=== PATIENT | male | born 1945 | race Caucasian/White ===

== ENCOUNTER → 2018-02-25 11:28 | Outpatient (CLI) | payer OTHER, SELFPAY ==
--- NOTE | 2018-02-25 | DI.MRI.S_ITS ---
PROCEDURE: MR LUMBAR SPINE WO CON INDICATIONS: LOW BACK PAIN TECHNIQUE: Noncontrast sagittal T1 spin echo and T2 fast echo, sagittal STIR, axial T1 and T2 fast spin echo through the lumbar spine. In cases with scoliosis, additional coronal T2 fast spin echo may be performed. COMPARISON: [facility], MR, L-SPINE WITHOUT CONTRAST, 03/06/2010, 10:02. FINDINGS: Image quality: Diagnostic, with note made of motion artifact. Alignment and Curvature: There is normal bony alignment. Bone Marrow: Marrow is of normal overall signal. No acute vertebral body compression fractures. Spinal Cord: Conus medullaris terminates at the L1 level. Visualized cord demonstrates normal signal and size. Paraspinous Soft Tissues: No paravertebral masses. T12-L1: Normal appearance. L1-L2: Bridging endplate osteophytes are seen anteriorly. No significant neural foraminal or central canal narrowing are seen. Stable from the prior study. L2-L3: The disc height is well-preserved. Loss of disc signal is seen at this level. Mild generalized disc bulge is seen. There is mild left-sided and no significant right-sided neural foraminal narrowing seen. No central canal narrowing is seen. When comparison is made with the prior examination, these findings are similar. L3-L4: Moderate loss of disc height is seen. Loss of disc signal is seen. A nonacute appearing Schmorl's node is seen at the superior endplate of L4. An annular fissure can be seen on the left posteriorly, as on series 5 image 21 and on series 2 image 13. Mild to moderate facet hypertrophy is seen. No neural foraminal narrowing is seen, left worse than right. Mild central canal narrowing is seen. There has been progression compared to 2009. L4-L5: The disc height is well-preserved. Loss of disc signal is seen at this level. Mild to moderate disc bulge is seen. Mild to moderate facet hypertrophy is seen. Minimal to mild bilateral neural foraminal narrowing is seen, right worse than left. No significant central canal narrowing is seen. The degree of neural foraminal narrowing appears slightly improved compared to 2009. L5-S1: Moderate loss of disc height is seen. Loss of disc signal is seen. Reactive marrow endplate changes are seen, which are hyperintense on T1-weighted and T2-weighted imaging and most consistent with fatty metaplasia (Modic type II changes). Mild to moderate disc bulge is seen. Along the posterior aspect of the annulus fibrosis, there is an annular fissure seen, as on series 2 image 8. Mild facet joint hypertrophy is seen. There is mild to moderate right-sided and mild left-sided neural foraminal narrowing seen. No significant central canal narrowing is seen. When comparison is made with the prior examination, these findings are similar. IMPRESSION: Multiple levels of lumbar spine degenerative change are seen, which are similar to 2010. However, there is mild progression since that time L3-L4. The degree of neural foraminal narrowing L4-L5 is improved compared to 2010. Dictated by: Thomas Dennison M.D. on 02/25/2018 at 13:12 Approved by: Thomas Dennison M.D. on 02/25/2018 at 13:19
== END ==
PROVIDERS: PCP Family Medicine; Visit Provider Physical Medicine & Rehabilitation Pain Medicine
DX: M54.5 Low back pain (principal); M51.36 Other intervertebral disc degeneration, lumbar region; M51.37 Other intervertebral disc degeneration, lumbosacral region; M48.061 Spinal stenosis, lumbar region without neurogenic claudication; M48.07 Spinal stenosis, lumbosacral region
CPT/HCPCS: 72148

== ENCOUNTER 2019-07-21 08:05 | Day surgery (SDC) | payer OTHER, SELFPAY ==
--- NOTE | 2019-07-21 | PATH_ITS ---
[facility] Accession Number: [id number] . 01 Material submitted: . colon - CECAL POLYPS X2 . 02 Diagnosis: Cecal Polyps x2: Portions of tubular adenoma x2. MRV 07/24/2019 1346 Local . 02 Electronically signed: . Silvana Guevara MD, Pathologist NPI- [id number] . 01 Gross description: . CECAL POLYPS X2: Received in formalin are 2 fragment(s) of russell, soft tissue measuring 0.2 x 0.2 x 0.2 cm to 0.4 x 0.2 x 0.2 cm submitted entirely in 1 cassette(s) /[employer] [facility] [employer] 07/21/20192050 Local . 02 Pathologist provided ICD-10: K63.5 . 02 CPT . 981477 Performed at: 01 [facility] [address] [place] [address] [id number] MD Fredy Be MD Phone: [phone] Performed at: 02 [facility] [place] [address] [place], [place] [id number] MD Susanne Martinez MD Phone: [phone]
[2019-07-21] MEDS: SODIUM CHLORIDE 0.9% 1,000 ML 200 ML IV (08:37)
[2019-07-21 08:48] VITALS: BP 160/84; PULSE 70; RESP 12; TEMP 36.3; O2SAT 96; BMI 29.5
--- NOTE | 2019-07-21 09:29 | PM.HP.1 ---
History of Present Illness History of Present Illness Date Patient Seen: 07/21/19 Time Patient Seen: 09:29 Chief complaint: [id number] SCREENING COLONOSCOPY Narrative: This is a 74-year-old man with history of GI bleed several years ago which required emergency endoscopy. The patient says no active bleed was found at that time, and the colonoscopy portion of the procedure was otherwise normal other than a few polyps found. Since then he has not had any blood in the stool, melena, unexplained weight loss, or unexplained abdominal pain. He has not had a follow-up endoscopy since that event. Per his primary care doctor's note his last colonoscopy was in 2014. The patient is not sure of the dates. He says he is otherwise healthy. He has some hypertension and hyperlipidemia. He takes atorvastatin, hydrochlorothiazide, zolpidem, metoprolol. ROS Thirteen system review is otherwise negative other than as mentioned below and in HPI. PE: GENERAL: Well groomed and cooperative. Appears stated age. Answers questions promptly and appropriately. Vital signs noted. HENT: Normocephalic, atraumatic. Hearing intact. Oral mucosa is pink and moist. EYES: Conjunctiva pink, sclera white, no periorbital swelling. CARDIOVASCULAR: Regular rate. No pedal edema. RESPIRATORY: Non-tachypneic, breathing comfortably on room air. GASTROINTESTINAL: Abdomen soft and non-distended GENITALURINARY: No flank tenderness. MUSCULOSKELETAL: Equal tone and mass bilaterally. SKIN: Warm, dry, soft, appropriate color for ethnicity. No other lesions, rashes, or wounds. NEURO: Alert and Oriented X 3. No gross sensory deficits, or cognitive issues. PSYCH: Appropriate affect and mood. Patient History Family & Social History Social History: household members none Tobacco & Substance use: Tobacco type cigarettes Smoking Status Former smoker alcohol intake former Substance Use Type does not use Meds Home Medications and Allergies Home Medications Medication Instructions Recorded Confirmed Type albuterol sulfate [Ventolin HFA] See Protocol INH PRN PRN #0 MDD 08/05/17 07/21/19 History shortness of breath aspirin 81 mg PO QDAY #0 08/05/17 07/21/19 History atorvastatin 80 mg PO QDAY #0 08/05/17 07/21/19 History hydrochlorothiazide 25 mg PO QDAY #0 08/05/17 07/21/19 History multivitamin [Multiple Vitamins] 1 tab PO QDAY #0 08/05/17 07/21/19 History Allergies Allergy/AdvReac Type Severity Reaction Status Date / Time No Known Allergies AdvReac Uncoded 07/21/19 08:38 Exam Vital Signs (past 8 hours): - 07/21/19 08:48 Temperature 97.3 F L Pulse Rate 70 Respiratory Rate 12 Blood Pressure 160/84 H Pulse Oximetry 96 Oxygen Delivery Method Room Air Assessment & Plan Assessment and plan (1) Personal history of colonic polyps: Current visit: Yes Status: Acute Assessment & Plan narrative: I discussed with the patient that he should probably have a surveillance EGD at some point, but we will meet back in the office, get his old notes from his prior procedure, and discuss this procedure prior to scheduling him for that at a future date. Risks and benefits of surveillance colonoscopy and possible polypectomy were discussed with the patient including risk of bleeding, perforation, need for additional procedures, risks of anesthesia. The patient desires to proceed with the colonoscopy procedure. Time Spent With Patient Time with patient: 15-24 minutes Quality VTE Deep Vein Thrombosis/Pulmonary Embolism Present on Admission: No
[2019-07-21] MEDS: fentaNYL 250 MCG/5 ML INJ IV (09:32)
[2019-07-21] MEDS: MIDAZOLAM 5 MG/5 ML VIAL IV (09:53)
--- NOTE | 2019-07-21 09:54 | PM.OP.ENDO ---
Operative Date/Time/Diagnoses Date of procedure: 07/21/19 Time of procedure: 09:54 Pre-op diagnosis: This is a 74-year-old man with history of polyps, and remote history of GI bleed Post-op diagnosis: other (Extensive pancolonic diverticulosis, 2 cecal polyps) Procedure & Clinicians Study performed: Surveillance colonoscopy, polypectomy x2 with cold snare Same procedure as scheduled: Yes Indications: Personal history of colon polyps, remote history of GI bleed Surgeon: Yessy Pitts Procedure Notes SCOAP/Timeout: Performed Procedure in detail: The patient was brought to the room and placed in left lateral decubitus position with all bony prominences padded. A time-out was performed and then the patient was given procedural sedation starting with 4 mg of Versed and 100 mcg of fentanyl. A total of 6 mg of Versed and 150 micro g of fentanyl were given for the entire procedure. Vitals were monitored throughout the procedure and remained stable. Once adequately sedated the procedure was begun. A rectal exam was performed revealing no abnormalities. The colonoscope was then introduced to the rectum and advanced to the cecum in the usual fashion. The cecum was identified by the appendiceal orifice, the mucosal tri-fold, and the ileocecal valve. There were 2 small polyp seen in the cecum, which were completely removed with cold snare. The scope was then retracted while rotating side to side and examining each mucosal fold. Extensive pancolonic diverticulosis is seen, with the most significant diverticula in the sigmoid colon. He had quite a bit of thickening of the sigmoid colon consistent with prior episodes of diverticulitis. He had many false passages and deep diverticular pockets. At the conclusion of the procedure retroflexion was performed and moderate grade 2 internal hemorrhoids without stigmata of bleeding were seen. The scope was then withdrawn from the rectum the procedure was concluded. The patient tolerated the procedure well and was transferred to the PACU in stable condition. Scope withdrawal time: 10 Sedation minutes: 23 Findings: diverticulosis, internal hemorrhoids and polyp Specimen(s): other (Two cecal polyps) Complications: none Impression: Extensive diverticulosis, 2 polyps in the cecum Post-procedure Recommendations: Colonscopy in 5 years (Depending on pathology results) and Other recommendation (Follow-up in clinic regarding history of upper GI bleed, and need for repeat EGD) Follow up: as needed Disposition: PACU
[2019-07-21 09:59] VITALS: BP 126/69; PULSE 56; RESP 17; TEMP 36.7; O2SAT 94
[2019-07-21 10:04] VITALS: BP 112/68; PULSE 55; RESP 11; O2SAT 93
[2019-07-21 10:09] VITALS: BP 118/62; PULSE 61; RESP 14; O2SAT 95
[2019-07-21 10:15] VITALS: BP 123/64; PULSE 62; RESP 15; TEMP 36.1; O2SAT 97
[2019-07-21 10:55] VITALS: BP 132/72; PULSE 60; RESP 16; TEMP 36.2; O2SAT 97
== END 2019-07-21 10:59 | disposition home or self-care (01) ==
PROVIDERS: PCP Family Medicine; Referring Provider Family Medicine; Visit Provider Surgery
PROC: 0DJD8ZZ Inspection of Lower Intestinal Tract, Via Natural or Artificial Opening Endoscopic (ICD-10-PCS; CPT 45378; principal; 2019-07-21 09:15)
DX: Z12.11 Encounter for screening for malignant neoplasm of colon (principal); Z86.010 Personal history of colon polyps; K57.30 Diverticulosis of large intestine without perforation or abscess without bleeding; K64.1 Second degree hemorrhoids; D12.0 Benign neoplasm of cecum
CPT/HCPCS: 45385; 99152; J2250; J3010

== ENCOUNTER → 2021-01-07 09:21 | Outpatient (CLI) | payer MEDICARE, SELFPAY ==
--- NOTE | 2021-01-07 | DI.MRI.S_ITS ---
PROCEDURE: MR LUMBAR SPINE WO CON INDICATIONS: LOW BACK PAIN TECHNIQUE: Noncontrast sagittal T1 spin echo and T2 fast echo, sagittal STIR, axial T1 and T2 fast spin echo through the lumbar spine. In cases with scoliosis, additional coronal T2 fast spin echo may be performed. COMPARISON: None. FINDINGS: Image quality: Excellent. Alignment and Curvature: Normal lumbar vertebral body height and alignment. Bone Marrow: No suspicious focal marrow signal abnormality. There are mild degenerative endplate changes in the lower lumbar spine. Scattered small T1/T2 hyperintense hemangiomas noted. Spinal Cord: Normal position and appearance of the conus. Regional Soft Tissues: Prevertebral and paraspinous soft tissues are within normal limits. The included unenhanced retroperitoneal visceral structures demonstrate no acute finding. T12-L1: Normal disc height and hydration. No spinal canal or neural foraminal stenosis. L1-L2: Disc height loss and disc desiccation with shallow disc bulge producing no spinal canal or neural foraminal stenosis. L2-L3: Disc height loss and disc desiccation. Diffuse disc bulge flattens the ventral thecal sac without mass effect upon the traversing L3 nerve roots. Small foraminal components of the disc bulge and facet hypertrophy combine to produce mild bilateral neural foraminal stenosis. Small facet effusions with subchondral cystic change. L3-L4: Disc desiccation and disc height loss. Disc bulge flattens the ventral thecal sac without mass effect upon the traversing L4 nerve roots. Foraminal components of the disc bulge and facet hypertrophy combine to produce moderate right and mild left neural foraminal stenosis. Facet effusions and subchondral cystic change noted. L4-L5: Diffuse disc bulge and a superimposed broad-based posterior disc protrusion. Disc material flattens and indents the ventral thecal sac. No mass effect upon the traversing L5 nerve roots. Foraminal components of the disc bulge and facet hypertrophy combine to produce moderate bilateral neural foraminal stenosis. Facet effusions and subchondral cystic change noted. L5-S1: Diffuse disc bulge with this central protrusion flattens and indents the ventral thecal sac. There may be mild displacement of the descending S1 nerve roots. Foraminal components of the disc bulge and facet hypertrophy combine to produce mild bilateral neural foraminal stenosis. IMPRESSION: [id number] degenerative changes throughout the lumbar spine, worst at L3-L4 at L4-L5 where there is moderate neural foraminal stenosis. No definite evidence of focal nerve root impingement. Facet hypertrophy with facet effusions and subchondral cystic change in the lower lumbar spine. This represents a potential source of nonradicular axial back pain. Dictated by: Loi Laurent M.D. on 01/07/2021 at 14:30 Approved by: Loi Laurent M.D. on 01/07/2021 at 14:37
== END ==
PROVIDERS: PCP Family Medicine; Referring Provider Family Medicine; Visit Provider Family Medicine
DX: M54.16 Radiculopathy, lumbar region (principal); M51.36 Other intervertebral disc degeneration, lumbar region; M48.061 Spinal stenosis, lumbar region without neurogenic claudication
CPT/HCPCS: 72148

== ENCOUNTER → 2021-08-05 16:42 | Outpatient (CLI) | payer MEDICARE, SELFPAY ==
--- NOTE | 2021-08-05 | DI.RAD.S_ITS ---
PROCEDURE: XR HIP W PEL IF DONE LT 2V INDICATIONS: left hip and back pain TECHNIQUE: AP pelvis with lateral view(s) of the left hip(s). COMPARISON: None. FINDINGS: Bones: No fractures or dislocations. Pelvic ring appears intact. No suspicious bony lesions. Moderate bilateral hip degenerative narrowing is present. Small periarticular osteophytes are present. No erosions. Degenerative changes are present within the lower lumbar spine. Soft tissues: The visualized bowel gas pattern is normal. No suspicious soft tissue calcifications. IMPRESSION: Moderate bilateral hip osteoarthritis. Dictated by: Abril Workman M.D. on 08/06/2021 at 11:23 Approved by: Abril Workman M.D. on 08/06/2021 at 11:24
== END ==
PROVIDERS: PCP Family Medicine; Referring Provider Neurological Surgery; Visit Provider Neurological Surgery
DX: M46.1 Sacroiliitis, not elsewhere classified (principal); M54.9 Dorsalgia, unspecified; M25.552 Pain in left hip; M16.0 Bilateral primary osteoarthritis of hip
CPT/HCPCS: 73502

== ENCOUNTER → 2022-07-07 12:39 | Outpatient (CLI) | payer MEDICARE, SELFPAY ==
--- NOTE | 2022-07-15 14:11 | DIAB.MNT ---
Initial Diabetes Medical Nutrition Therapy Assessment Name: Felton Dowd (Joel) Date: 07/07/22 Time: 105-215p Dx: Type II Diabetes Provider: Juan M Maldonado presents for initial DM visit newly diagnosed with T2DM. Denies FH of DM. 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 Was scheduled for back sx but needed to r/s due to work. Reports increase in high carb foods after injury with limited mobility at that time (NovemberDec 2021). Reports he finds it especially difficult to eat healthy in winter months. [place] far[place] bread. Wanting nutrition guidance. ? Diet Recall: Wake (4 am) B: (4:30-5 am) 1-2 cups coffee with 2% milk, flavored oatmeal with 1/4 cup raisins and 1/2 cup milk OR 1 cup cereal (life cereal) with 1/4 cup raisins, 5 peach slices or banana with 2% milk OR (Wednesday) eggs with veggies and grits (3 Tbsp dry), ~8 oz OJ or 12 oz milk.? Work: 2 cups grapes OR 1 cup bengali yogurt OR 3-4 ritz crackers, 1 oz cheese, and sardines.? Dinner (6-7 pm) chicken, peas or asparagus, baked potato or yam or 2 cups beans and rice (not much). S: Haggan Daiz (vanilla, chocolate, or coffee), 16 oz 2% milk, 4-6 Dacia Doones cookies (6 = 20g) Bed (9-10 pm) Anthropometrics: Ht: 5'11 / 71 inches Wt: 212 lbs / 96.4 kg reported Physical Activity: likes to golf/swim, [place] by trade. However, barriers now include being busy with work and has lower back pain.?Will walk in the pool on occasion. Self-Monitoring Blood Glucose: none Diabetes Medications: started Metformin last night: 500 mg BID.? Pertinent Labs: 6.8% (05/21/22) reported Past Medical History: Reported HTN, HLD Nutrition Rx: Carbohydrates: Meal:45-60g Snack:15-30g Nutrition Diagnosis: - Food and nutrition related knowledge deficit r/t new dx T2Dm aeb hgA1c >6.5% -Excessive CHO intake r/t nutrition knowledge deficit aeb diet recall Intervention: This participant was very receptive. Provided appropriate educational handouts. Discussed the following topics: Completed intake assessment. Discussed barriers to care. Plate Method, impact of macronutrients on blood sugar, meal timing, carbohydrate counting, pairing macronutrients and spreading out carbohydrates for better blood glucose management Recommended servings for carbohydrates at meals and snacks Brainstormed appropriate meal plan based on food preferences Role of physical activity and following provider guidelines for safety Created SMART goals for patient self-care and success. Goals: Breakfast: cut raisins in half to 1/8 cup or 2 Tbsp Add protein to breakfast? Measure beans and rice Check milk glass portion Follow-up: SUSSY WANG follow-up in 3-4 weeks Cassy Beltran RDN, KATHLEEN Certified Diabetes Care and Neighborhood Worker P: [phone] Thank you for this referral
== END ==
PROVIDERS: Absent Provider Family Medicine; Family Provider Family Medicine; PCP Family Medicine; Referring Provider Family Medicine
DX: E11.9 Type 2 diabetes mellitus without complications (principal); Z71.3 Dietary counseling and surveillance; Z79.84 Long term (current) use of oral hypoglycemic drugs
CPT/HCPCS: 97802

== ENCOUNTER → 2022-09-08 10:39 | Outpatient (CLI) | payer MEDICARE, SELFPAY ==
[2022-09-08 11:27] LABS: Appearance Urine UA CLEAR; Bilirubin Urine UA NEGATIVE (NEGATIVE); Color Urine UA YELLOW; Glucose Urine UA NEGATIVE (Negative); Ketones Urine UA NEGATIVE (NEGATIVE); Leukocyte Esterase Urine UA NEGATIVE (NEGATIVE); Nitrite Urine UA NEGATIVE (Negative); Occult Blood Urine UA NEGATIVE (Negative); Protein Urine UA NEGATIVE (Negative); Urobilinogen Urine UA 0.2 E.U./dL (0.2)
[2022-09-08 11:35] LABS: Bacteria Urine None Seen; Culture Indicated Urine Cult Not Indicated; RBC Urine None Seen (0-5/HPF); Squamous Epithelial Cell Urine None Seen (0-5/HPF); WBC Urine None Seen (0-5/HPF)
== END ==
PROVIDERS: Family Provider Family Medicine; PCP Family Medicine; Referring Provider Family Medicine; Visit Provider Family Medicine
DX: Z01.89 Encounter for other specified special examinations (principal)
CPT/HCPCS: 81001

== ENCOUNTER → 2022-09-14 08:54 | Outpatient (CLI) | payer MEDICARE, SELFPAY ==
--- NOTE | 2022-09-14 | DI.US.S_ITS ---
PROCEDURE: US SCROTUM INDICATIONS: LEFT TESTICULAR LUMP ?HERNIA TECHNIQUE: Real-time scanning was performed of the scrotum and testicles, with image documentation. Color and pulse Doppler interrogation was performed of both testicles. COMPARISON: None. FINDINGS: Right: Testicle is normal in size at 4.5 x 3.2 x 2.2 cm, and fairly homogenous in echotexture. Multiple well-circumscribed tiny anechoic structures are noted scattered in right testicular parenchyma measures up to 4.7 x 4.5 x 4.5 mm in size in inferior right testes and show no internal vascularity. Epididymis is normal in overall size . A cluster anechoic cysts are noted in right epididymal head and body measures up to 1.5 x 1.2 x 0.9 cm in size. Punctate echogenic foci are noted in right epididymis . No hydrocele or varicoceles. Overlying scrotal skin is normal in thickness. Left: Testicle is normal in size at 4.1 x 3.3 x 2.0 cm, and fairly homogeneous in echotexture. Tiny hypoechoic and anechoic areas are seen in left testicular parenchyma measures up to 2 x 3 x 4 mm in size and show no internal vascularity. Low level internal echo is seen in 1 of the lesions in lateral aspect of upper left testes. Epididymis is normal in overall size . Multiple cysts are noted in left epididymal head measures up to 7 x 6 x 6 mm in size. No hydrocele . Varicoceles are seen in left scrotum measures up to 4.9 mm in diameter. Overlying scrotal skin is normal in thickness. Doppler: Color and pulse Doppler demonstrate normal and symmetric arterial flow in both testicles. IMPRESSION: 1. Suggestion of simple and complex appearing cysts in bilateral testicular parenchyma. No definite solid appearing testicular lesion. 2. Bilateral epididymal cysts as above. Small echogenic foci also seen within right epididymis and may represent tiny calcifications. 3. Suggestion of left-sided varicocele. No hydrocele is seen. 4. No evidence of left inguinal hernia. Dictated by: Lebron Ma M.D. on 09/14/2022 at 13:36 Approved by: Lebron Ma M.D. on 09/14/2022 at 13:41
== END ==
PROVIDERS: Family Provider Family Medicine; PCP Family Medicine; Referring Provider Family Medicine; Visit Provider Family Medicine
DX: N50.89 Other specified disorders of the male genital organs (principal); N50.3 Cyst of epididymis
CPT/HCPCS: 76870

== ENCOUNTER → 2023-03-31 11:28 | Outpatient (CLI) | payer MEDICARE, SELFPAY ==
--- NOTE | 2023-03-31 | DI.MRI.S_ITS ---
PROCEDURE: MR THORACIC SPINE WO CON INDICATIONS: Strain of muscle and tendon of back wall of thorax TECHNIQUE: Noncontrast sagittal T1 spine echo and T2 fast spin echo, sagittal STIR, and T2 fast spin echo through the thoracic spine. COMPARISON: [facility], CT, THORAX WITHOUT CONTRAST, 06/16/2016, 9:33. [facility], CR, XR THORACIC SPINE 2 VIEWS, 03/24/2023, 9:38. FINDINGS: Image quality: This examination is limited by involuntary motion artifact. Alignment and Curvature: Minimal to mild dextroconvex scoliotic curvature is seen. No focal AP alignment abnormality is seen. Bone Marrow: Marrow is of normal overall signal. No abnormal STIR signal is seen to suggest bony edema. Scattered foci are seen, which are hyperintense on T1-weighted and T2-weighted imaging, which are most consistent with benign vertebral body hemangiomas. The most prominent of these is seen within the anterior inferior aspect of T6. No acute vertebral body compression fractures. Spinal Cord: Visualized spinal cord is normal in size and signal. Paraspinous Soft Tissues: No paravertebral masses. In this patient with this given history, scrutiny is given to muscles of the back. No significant focal abnormality is identified. Miscellaneous: At the T5-T6 level, there is a mild central disc protrusion, with minimal central canal narrowing and minimal mass effect upon the ventral spinal cord, as on series 7, image 22. No significant neural foraminal narrowing can be seen. IMPRESSION: No significant focal abnormality can be seen involving the muscles of the back. Negative for acute bony abnormality. No bony edema. Focal mild degenerative change can be seen at T5-T6. Minimal to mild dextroconvex scoliotic curvature is seen. Dictated by: Thomas Dennison M.D. on 03/31/2023 at 16:01 Approved by: Thomas Dennison M.D. on 03/31/2023 at 16:05
== END ==
LOC: MRI 11:29
PROVIDERS: Family Provider Family Medicine; PCP Family Medicine; Referring Provider Physical Medicine & Rehabilitation Pain Medicine; Visit Provider Physical Medicine & Rehabilitation Pain Medicine
DX: S29.012S Strain of muscle and tendon of back wall of thorax, sequela (principal); M47.814 Spondylosis without myelopathy or radiculopathy, thoracic region; M41.9 Scoliosis, unspecified
CPT/HCPCS: 72146

== ENCOUNTER 2024-02-16 07:08 | Day surgery (SDC) | payer MEDICARE, SELFPAY ==
--- NOTE | 2024-02-16 | PATH_ITS ---
[facility] Accession Number: [id number] No. of containers..01 Tissue . 01 Material submitted: . colon - RIGHT COLON POLYP . 01 Diagnosis: RIGHT COLON POLYP: Tubular adenoma. STO 02/21/20241714 Local . 01 Electronically signed: . Fredy Be MD, Pathologist NPI- [id number] . 01 Gross description: . RIGHT COLON POLYP: Received in formalin is 1 fragment(s) of russell, soft tissue measuring 0.9 x 0.4 x 0.4 cm submitted entirely in 1 cassette(s) /[facility] 02/21/20241714 Local . 01 Pathologist provided ICD-10: D12.2 . 01 CPT . 844647 Specimen Comment: A courtesy copy of this report has been sent to [phone] Performed at: [address] [facility] [id number] MD Fredy Be MD Phone: [phone]
[2024-02-16 08:20] VITALS: BP 182/74; PULSE 79; RESP 18; TEMP 36.2; O2SAT 98
--- NOTE | 2024-02-16 08:38 | PM.HP.1 ---
History of Present Illness History of Present Illness Date Patient Seen: 02/16/24 Chief complaint: Dx Colonoscopy w/poss bx Narrative: [facility] Social History household members: none Smoking Status: Former smoker alcohol intake: former Meds Home Medications and Allergies Home Medications Medication Instructions Recorded Confirmed Type albuterol sulfate 90 mcg/actuation See Protocol INH PRN PRN Adequate 08/05/17 02/16/24 History aerosol inhaler (Ventolin HFA) Ventilation ##0 aspirin 81 mg tablet,delayed 81 mg PO QDAY ##0 08/05/17 02/16/24 History release atorvastatin 80 mg tablet 80 mg PO QDAY ##0 08/05/17 02/16/24 History hydrochlorothiazide 25 mg tablet 25 mg PO QDAY ##0 08/05/17 02/16/24 History multivitamin (Multiple Vitamins 1 tab PO QDAY ##0 08/05/17 02/16/24 History tablet) metformin 500 mg tablet,extended 500 mg PO BID 02/16/24 02/16/24 History release 24 hr metoprolol succinate 25 mg 75 mg PO 02/16/24 History tablet,extended release 24 hr Allergies Allergy/AdvReac Type Severity Reaction Status Date / Time No Known Allergies AdvReac Uncoded 02/16/24 08:28 Exam Vital Signs (past 8 hours): - 02/16/24 08:20 Temperature 97.1 F L Pulse Rate 79 Respiratory Rate 18 Blood Pressure 182/74 H Pulse Oximetry 98 Narrative Exam Narrative: Oropharynx free of lesions Chest clear to auscultation percussion Cardiac exam reveals no S3 or murmur Assessment & Plan Assessment & Plan narrative: History of colon polyps need for follow-up colonoscopy at a 6 year interval. Risks, benefits, alternatives have been explained. Time-Based Coding :: [TOTAL MINUTES] spent with patient and on the chart (including review of chart, obtaining history, exam, reviewing outside data, placing orders, documenting exam and treatment plan, and counseling patient) on [DATE].
[2024-02-16] MEDS: LACTATED RINGERS 1,000 ML 42 ML IV (08:39)
--- NOTE | 2024-02-16 08:40 | PM.OP.COLON ---
Operative Date/Time/Diagnoses Date of procedure: 02/16/24 Pre-op diagnosis: See indication and findings Procedure & Clinicians Study performed: Colonoscopy Indications: Personal history of colon polyps with cecal polyp noted last colonoscopy 5-6 years ago Surgeon: Matt Jeter Procedure Notes Procedure in detail: After informed consent was obtained the patient was placed in left lateral decubitus position. The video colonoscope was introduced the rectum slowly advanced cecum. Preparation was good. On slow withdrawal mucosa was carefully examined. The scope was removed. The patient tolerated procedure well. Blood loss none Complications none Sedation mac Findings 1. 6 mm polyp in the mid ascending colon cold snared and removed completely 2. Scattered left-sided diverticulosis 3. Otherwise negative colonoscopy to cecum. We will follow-up his pathology results and determine whether not he should have follow-up colonoscopy in 5-10 years
[2024-02-16 09:34] VITALS: BP 128/66; PULSE 70; RESP 19; TEMP 36.6; O2SAT 92
[2024-02-16 09:40] VITALS: BP 113/58; PULSE 66; RESP 12; O2SAT 95
[2024-02-16 09:45] VITALS: BP 131/70; PULSE 67; RESP 12; TEMP 36.8; O2SAT 94
== END 2024-02-16 10:23 | disposition home or self-care (01) ==
PROVIDERS: Family Provider Family Medicine; PCP Family Medicine; Referring Provider Internal Medicine Gastroenterology; Visit Provider Internal Medicine Gastroenterology
PROC: 0DJD8ZZ Inspection of Lower Intestinal Tract, Via Natural or Artificial Opening Endoscopic (ICD-10-PCS; CPT 45378; principal; 2024-02-16 09:00)
DX: Z12.11 Encounter for screening for malignant neoplasm of colon (principal); Z86.0100 Personal history of colon polyps, unspecified; K57.30 Diverticulosis of large intestine without perforation or abscess without bleeding; D12.2 Benign neoplasm of ascending colon
CPT/HCPCS: 45385; J2704

== ENCOUNTER → 2025-03-13 09:05 | Outpatient (CLI) | payer OTHER, SELFPAY ==
[2025-03-13 18:57] LABS: Hemoglobin A1C% w Est Avg Glu 6.5 % (4.0-6.0)
[2025-03-13 18:59] LABS: Add Manual Diff / Slide Review NO; Blood Urea Nitrogen 18 mg/dL (9-20); Calcium 9.3 mg/dL (8.4-10.2); Carbon Dioxide 32 mmol/L (22-32); Chloride 98 mmol/L (98-107); Cholesterol 201 mg/dL (140-199); Estimated Glomerular Filt Rate > 60 mL/min (>60); Glucose 122 mg/dL (70-99); HDL Cholesterol 41 mg/dL (40-60); HEMOLYSIS 26 (0-50); Hematocrit 45.1 % (41-53); Hemoglobin 15.4 g/dL (13.5-17.5); Lymphocytes Absolute Auto 2000 /uL (1100-4500); Mean Corpuscular HGB Conc 34.2 % (30-36); Mean Corpuscular Hemoglobin 29.3 PG (26-34); Mean Corpuscular Volume 85.7 fL (80-100); Platelet Count 341 X10^3/uL (150-400); Potassium 4.6 mmol/L (3.4-5.1); Sodium 136 mmol/L (137-145); Triglycerides 237 mg/dL (35-150)
== END ==
PROVIDERS: Family Provider Family Medicine; PCP Family Medicine; Visit Provider Family Medicine
DX: R73.03 Prediabetes (principal); E78.2 Mixed hyperlipidemia; I10 Essential (primary) hypertension
CPT/HCPCS: 80048; 80061; 83036; 85025